=== PATIENT | female | born 2000 | race Caucasian/White ===

== ENCOUNTER 2024-09-22 19:55 | Emergency (ER) | payer OTHER, SELFPAY ==
[2024-09-22 19:57] VITALS: BP 134/99
[2024-09-22 20:21] LABS: % Basophils 0.4 % (0-2); % Immature Granulocytes 1.2 % (0-0.5); % Lymphocytes 18.2 % (20.5-51.1); % Monocytes 16.5 % (1.7-9.3); % Neutrophils 63.7 % (42.2-75.2); Absolute Immature Granulocytes 0.1 10^3/uL (0-0.05); Absolute Lymphocytes 1.3 10^3/uL (1.2-3.4); Absolute Monocytes 1.1 10^3/uL (0.1-0.6); Absolute Neutrophils 4.4 10^3/uL (1.4-6.5); Hematocrit 38.8 % (37.0-47.0); Hemoglobin 13.4 g/dL (12.0-16.0); Mean Corp Hgb Conc. 34.5 g/dL (33.0-37.0); Mean Corpuscular Hgb 28.9 pg (27.0-31.0); Mean Corpuscular Volume 83.6 fL (81.0-99.0); Mean Platelet Volume 8.3 fL (7.4-10.4); Nucleated Red Blood Cells % 0 %; Platelet Count 215 10^3/uL (130-400); Red Blood Cell Count 4.64 10^6/uL (4.20-5.40); Red Cell Dist. Width 12.1 % (11.5-14.5); White Blood Cell Count 6.9 10^3/uL (4.8-10.8)
[2024-09-22 20:37] LABS: ALT (SGPT) 16 U/L (0-35); AST (SGOT) 19 U/L (14-36); Albumin 4.3 g/dl (3.5-5.0); Alkaline Phosphatase 59 U/L (38-126); Blood Urea Nitrogen 10 mg/dl (7-17); Calcium 9.1 mg/dl (8.4-10.2); Carbon Dioxide 30 mmol/L (22-30); Chloride 102 mmol/L (98-107); Glucose 100 mg/dl (70-99); Potassium 3.7 mmol/L (3.5-5.1); Sodium 142 mmol/L (135-145); Total Bilirubin 0.5 mg/dl (0.2-1.3); Total Protein 7.6 g/dl (6.3-8.2); eGFR > 60.00
[2024-09-22 22:08] VITALS: BP 127/81
[2024-09-22] MEDS: TORADOL 15 MG IV (22:53)
[2024-09-22] MEDS: NSS 1000 IV (22:53)
[2024-09-22] MEDS: DECADRON 8 MG IV (22:54)
[2024-09-22 22:57] LABS: Monotest Negative (Negative)
[2024-09-23] MEDS: CLEOCIN 52 MG IV (00:25)
--- NOTE | 2024-09-23 00:48 | ED.GENMED ---
History of Present Illness
General
Chief Complaint: Throat Problem
Time Seen by Provider: 09/22/24 22:24
History of Present Illness
History of Present Illness:
24-year-old female sore throat for about 7 days. Started amoxicillin x 6 days. Symptoms are progressing. 1 dose of steroids.
Past History
Past History
ED Past Medical History: Other (Anxiety)
ED Past Surgical History: None
Social History
Tobacco: Non-smoker
Alcohol: None
Drug: None
Phy Exam
Physical Exam
Physical Exam:
GENERAL: Alert and oriented in no apparent distress
EYE: Orbits normal.
NECK: Supple, bilateral submandibular tender adenopathy
ENT: Pharynx with erythema. Exudates on tonsils bilaterally. No trismus. No drooling no stridor.
CARDIAC: Regular rate and rhythm without any obvious murmurs.
LUNGS: Clear breath sounds,normal
ABDOMEN: Soft, without focal tenderness or distention. No liver or spleen,
NEUROLOGICAL: Alert and oriented , grossly non-focal
SKIN: Warm and dry, no rash or lesion, no discoloration, skin intact.
MUSCULOSKELETAL: No edema,no deformity.Good color
PSYCH: Normal and appropriate interaction.
Course
Orders/Labs/Results
Orders:
Orders
09/22/24 20:07
Rapid Strep Group A Urgent
STEPHANY Source: Throat/Pharynx
Specimen Description:
Date Specimen was Collected: 09/22/24
Time Specimen was Collected: 20:05
09/22/24 20:11
CMP [Comprehensive Metabolic Panel] Urgent
Complete Blood Count/With Diff Urgent
Monotest Urgent
Comment: ADD ON
09/22/24 22:24
Add On- LAB Urgent
Tests Added?: monotest
09/22/24 22:33
CT Neck With Iv Contrast Urgent
Comment:
Reason For Exam: Progressive throat pain and swelling fever
IV Insert/Care/Rem.- Treatment PRN
0.9% Sodium Chloride 1000 ml [Nss] 1,000 ml IV BOLUS
Dexamethasone Sod Phosphate [Decadron] 8 mg IV NOW STA
Ketorolac [Toradol] 15 mg IV NOW STA
09/23/24 00:07
Clindamycin Phosphate [Cleocin] 300 mg 0.9% Sodium Chloride [Nss] 50 ml IV NOW
Abnormal Lab Results
09/22/24
20:11
Abs Immat Gran (auto) 0.1 H 10^3/uL
(0-0.05)
Absolute Monos (auto) 1.1 H 10^3/uL
(0.1-0.6)
Immature Gran % 1.2 H %
(0-0.5)
Lymphocytes % 18.2 L %
(20.5-51.1)
Monocytes % 16.5 H %
(1.7-9.3)
Glucose 100 H mg/dl
(70-99)
09/22/24 20:11
09/22/24 20:11
Vital Signs
Initial and Last Documented VS:
Initial Vital Signs
Temp Pulse Resp BP Pulse Ox
98.8 F 106 20 134/99 99
09/22/24 19:57 09/22/24 19:57 09/22/24 19:57 09/22/24 19:57 09/22/24 19:57
Last Documented Vital Signs
Temp Pulse Resp BP Pulse Ox
98.8 F 110 24 127/81 100
09/22/24 19:57 09/22/24 22:08 09/22/24 22:08 09/22/24 22:08 09/22/24 22:08
*Radiology
Radiology exam reviewed: radiology read reviewed (Adenitis/tonsillitis. No abscess. No airway issue. No retropharyngeal)
*Critical Care Note
Total Time (30-74mins, 75-104mins- exclusive of procedures): Not Applicable
Update Note
Update Note:
Patient drank liquids and is doing well. No acute airway issue. No drooling no stridor no trismus. No marbled speech. Offered inpatient management but feel outpatient is reasonable. Patient and mom are comfortable with outpatient management.
ED Attending Note
-
Portions of this chart may have been created with voice recognition software.� Occasional wrong word or��sound alike� substitutions may have occurred due to the inherent limitations of voice recognition software.
Discharge Plan
Departure
Patient Disposition: Home (Routine Discharge)
Date of Disposition: 09/23/24
Time of Disposition: 00:49
Patient with high blood pressure during this ER visit?: Yes
Discharge Problem:
Tonsillitis/adenitis
Instructions: Sore Throat, Adult (DC), BLOOD PRESSURE
Prescriptions:
New
clindamycin HCl 300 mg capsule
300 mg PO QID 7 Days Qty: 28 0RF
Referrals:
Nicki Rodriguez CRNP [Family Provider] - Follow up in 2-3 days
Activity Restrictions/Additional Instructions:
The prescription was sent to your pharmacy
Stay well-hydrated
Motrin and/or Tylenol for pain
Return continued progression of symptoms inability to swallow shortness of breath or any other concerning symptoms
Interventions
Interventions:
*Risk Screen - Suicide Last Done: 09/22/24 19:57
*General Assessment Last Done: 09/22/24 19:57
*Neglect/Abuse Screening Last Done: 09/22/24 19:57
*ED COVID-19 Vaccine History Last Done: 09/22/24 19:57
ED-EENT Assessment Last Done: 09/22/24 23:16
ED- Pulmonary Assessment Last Done: 09/22/24 23:16
Discharge Date and Time
Print Language: TAJIK
[2024-09-23 00:49] VITALS: BP 97/83
[2024-09-23 01:25] VITALS: BP 106/77
== END 2024-09-23 01:32 | disposition home or self-care (01) ==
LOC: EMR 19:55
PROVIDERS: EMERGENCY PHYSICIAN Emergency Medicine; FAMILY PHYSICIAN Nurse Practitioner Adult Health
DX: J35.03 Chronic tonsillitis and adenoiditis (principal); R03.0 Elevated blood-pressure reading, without diagnosis of hypertension
CPT/HCPCS: 99285; 96365; 96375 ×2; 70491; 80053; 85025; 86308; 87070; 87880; Q9967